=== PATIENT | female | born 1995 | race Two or more races ===

== ENCOUNTER 2018-02-05 22:07 | Emergency (ER) | payer MEDICAID, OTHER ==
[~2018-02-05] VITALS: Ht 165.1 cm; Wt 97.9 kg
[~2018-02-05 22:07] MED LIST: DOCU-131 PO; IBUP-1222 PO; OXYC-302 PO; PREN1TAB56 PO
[2018-02-05 22:39] LABS: MICROSCOPIC NOT IND
[2018-02-05 22:40] LABS: CULTURE INDICATED? NO
[2018-02-06 00:20] LABS: CLUE CELLS NONE SEEN (NONE SEEN); WET PREP WBCS MODERATE (FEW)
[2018-02-06] MEDS ORDERED: CEFTRIAXONE 250 MG IM ONE (00:30)
[2018-02-06] MEDS ORDERED: AZITHROMYCIN 500 MG TABLET PO ONE (00:30)
[2018-02-06] MEDS ORDERED: AZITHROMYCIN 250 MG TABLET ONE (00:34)
[2018-02-06] MEDS ORDERED: CEFTRIAXONE 250 MG ONE (00:34)
[2018-02-06 00:45] VITALS: BP 121/85
== END 2018-02-06 00:48 | disposition home or self-care (01) ==
LOC: ED 23:01
DX: N89.8 Other specified noninflammatory disorders of vagina (principal)
CPT/HCPCS: 81003; 81025; 87210; 87491; 87591; 87808; 96372; 99284; J0696

== ENCOUNTER 2018-03-23 19:57 | Emergency (ER) | payer MEDICAID ==
[~2018-03-23] VITALS: Ht 172.7 cm; Wt 96.5 kg
[2018-03-23 20:29] LABS: BASOPHILS # (AUTO) 0.04 x10^3/uL (0-0.1); BASOPHILS % (AUTO) 0 % (0-1); EOSINOPHILS # (AUTO) 0.11 x10^3/uL (0-0.4); EOSINOPHILS % (AUTO) 1 % (1-7); LYMPHOCYTES # (AUTO) 3.27 x10^3/uL (1-3.4); LYMPHOCYTES % (AUTO) 31 % (22-44); MD NO; MEAN CORPUSCULAR HEMOGLOBIN 27.5 pg (27.0-34.8); MEAN CORPUSCULAR HGB CONC 33.2 g/dL (32.4-35.8); MEAN CORPUSCULAR VOLUME 82.7 fL (80-100); MEAN PLATELET VOLUME 8.9 fL (7.4-10.4); MONOCYTES # (AUTO) 0.37 x10^3/uL (0.2-0.8); MONOCYTES % (AUTO) 4 % (2-9); NEUTROPHILS # (AUTO) 6.85 x10^3/uL (1.8-6.8); NEUTROPHILS % (AUTO) 64 % (42-75); PLATELET COUNT 306 x10^3/uL (130-400); RED BLOOD COUNT 4.81 x10^6/uL (3.82-5.3); RED CELL DISTRIBUTION WIDTH 13.7 % (9.6-15.2)
[2018-03-23 20:37] LABS: ALBUMIN 3.6 g/dL (3.4-5.0); ANION GAP 9 mmol/L (5-15); CALCIUM 8.7 mg/dL (8.5-10.1); CHLORIDE 108 mmol/L (98-107); CREATININE 0.93 mg/dL (0.55-1.02)
[2018-03-23 21:20] LABS: MICROSCOPIC NOT IND
[2018-03-23 21:23] LABS: CULTURE INDICATED? NO
[2018-03-23 22:19] VITALS: BP 122/68
== END 2018-03-23 22:21 | disposition home or self-care (01) ==
LOC: ED 20:43
DX: N89.8 Other specified noninflammatory disorders of vagina (principal)
CPT/HCPCS: 36415; 80048; 81003; 82040; 84703; 85025; 99284

== ENCOUNTER 2019-08-16 19:51 | Emergency (ER) | payer MEDICAID ==
[~2019-08-16] VITALS: Ht 172.7 cm; Wt 96.3 kg
--- NOTE | 2019-08-16 20:07 | NUR ---
Pt prompted to attempt ua. Attempting at this time.
--- NOTE | 2019-08-16 20:21 | NUR ---
Pt presents to ed c/o painful urinationx2 days. States recent 3 months ago, and treated for UTI shortly after. Denies fever at home. States painful urination and increased frequency. Ua collected. Bedside report to Arleth arroyo.
--- NOTE | 2019-08-16 20:29 | NUR ---
Bedside report received from ANTHONY Cano. This RN to assume care. Urine sent to lab; awaiting results. Patient has no complaints at this time.
[2019-08-16 20:46] LABS: MICROSCOPIC AUTO
[2019-08-16 20:49] LABS: CULTURE INDICATED? YES
--- NOTE | 2019-08-16 21:05 | NUR ---
UA results returned; US ordered. Patient resting in [facility] with no complaints at this time.
[2019-08-16 21:21] LABS: HCG UR SG 1.016 (1.003-1.030)
[2019-08-16 23:38] VITALS: BP 121/77
--- NOTE | 2019-08-16 23:38 | NUR ---
Patient resting in [place] with no complaints. Awaiting US results.
--- NOTE | 2019-08-17 00:41 | NUR ---
Late entry: Discharge instructions given. All questions and concerns addressed. Patient ambulatory with a steady gait. Belongings with patient.
== END 2019-08-17 00:42 | disposition home or self-care (01) ==
LOC: ED 23:55
DX: R10.2 Pelvic and perineal pain (principal); R11.0 Nausea; R30.0 Dysuria
CPT/HCPCS: 76830; 81001; 81025; 87086; 99284

== ENCOUNTER 2019-09-08 02:49 | Emergency (ER) | payer MEDICAID ==
[~2019-09-08] VITALS: Ht 172.7 cm; Wt 95.9 kg
--- NOTE | 2019-09-08 04:00 | NUR ---
PT SITTING UPRIGHT IN BED NO APPARENT DISCOMFORT. 3P'S ADDRESSED.
[2019-09-08 04:39] VITALS: BP 125/80
== END 2019-09-08 05:07 | disposition home or self-care (01) ==
LOC: ED 03:13
DX: S39.012A Strain of muscle, fascia and tendon of lower back, initial encounter (principal); S29.012A Strain of muscle and tendon of back wall of thorax, initial encounter; K21.9 Gastro-esophageal reflux disease without esophagitis; X58.XXXA Exposure to other specified factors, initial encounter; Y93.89 Activity, other specified; Y92.89 Other specified places as the place of occurrence of the external cause; Y99.8 Other external cause status
CPT/HCPCS: 71045; 99283

== ENCOUNTER 2019-09-28 19:41 | Emergency (ER) | payer MEDICAID ==
[~2019-09-28] VITALS: Ht 172.7 cm; Wt 97.9 kg
[2019-09-28] MEDS ORDERED: DIAZEPAM 5 MG TABLET ONE (21:10)
[2019-09-28] MEDS ORDERED: KETOROLAC 30 MG/1 ML ONE (21:10)
[2019-09-28] MEDS ORDERED: KETOROLAC 30 MG/1 ML IM ONE (21:30)
[2019-09-28] MEDS ORDERED: DIAZEPAM 5 MG TABLET PO ONE (21:30)
[2019-09-28 21:54] VITALS: BP 137/84
== END 2019-09-28 21:56 | disposition home or self-care (01) ==
LOC: ED 20:49
DX: S16.1XXA Strain of muscle, fascia and tendon at neck level, initial encounter (principal); M62.830 Muscle spasm of back; K21.9 Gastro-esophageal reflux disease without esophagitis; X58.XXXA Exposure to other specified factors, initial encounter; Y93.89 Activity, other specified; Y92.89 Other specified places as the place of occurrence of the external cause; Y99.8 Other external cause status
CPT/HCPCS: 72050; 99283